=== PATIENT | male | born 1970 | race Caucasian/White ===

== ENCOUNTER 2017-12-23 06:47 | Emergency (ER) | payer MEDICAID ==
[2017-12-23] MEDS: KETOROLAC 60 MG INJ IM (08:22)
[2017-12-23] MEDS: DIAZEPAM 5 MG TAB PO (08:22)
[2017-12-23 10:50] LABS: ADD UMIC NO; UR ASCORBIC ACID NEGATIVE (NEGATIVE); UR BILIRUBIN (Dip) NEGATIVE (NEGATIVE); UR BLOOD (Dip) NEGATIVE (NEGATIVE); UR CLARITY CLEAR (CLEAR); UR COLOR STRAW (YELLOW); UR GLUCOSE (Dip) NEGATIVE (NEGATIVE); UR KETONES (Dip) NEGATIVE (NEGATIVE); UR LEUKOCYTE ESTERASE (Dip) NEGATIVE Leu/ul (NEGATIVE); UR NITRITE (Dip) NEGATIVE (NEGATIVE); UR SPECIFIC GRAVITY (Dip) 1.006 (1.003-1.030); UR TOTAL PROTEIN (Dip) NEGATIVE (NEGATIVE); UR UROBILINOGEN (Dip) NEGATIVE (NEGATIVE)
== END 2017-12-23 13:30 | disposition home or self-care (01) ==
LOC: FTE 06:47
DX: M54.5 Low back pain (principal)
CPT/HCPCS: 72040; 72100; 81003; 96372; 99284-25